=== PATIENT | female | born 1990 | race American Indian/Alaskan Native ===

== ENCOUNTER 2019-11-24 18:49 | Emergency (ER) | payer MEDICAID ==
[2019-11-24] MEDS ORDERED: ACETAMINOPHEN 500 MG TAB PO ONE (22:56)
[2019-11-25 00:25] LABS: Bacteria,Urine 1+ /HPF (Negative); Bilirubin,Urine NEG (Negative); Blood,Urine NEG (Negative); Color,Urine Yellow (Yellow); Protein,Urine <15 mg/dL mg/dL (Negative)
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
[2019-11-25 02:09] VITALS: BP 111/67
== END 2019-11-25 02:09 | disposition home or self-care (01) ==
LOC: ED 18:49
DX: O99.512 Diseases of the respiratory system complicating pregnancy, second trimester (principal); O23.31 Infections of other parts of urinary tract in pregnancy, first trimester; J01.10 Acute frontal sinusitis, unspecified; J20.8 Acute bronchitis due to other specified organisms; J06.9 Acute upper respiratory infection, unspecified; N39.0 Urinary tract infection, site not specified; Z3A.20 20 weeks gestation of pregnancy; Z91.013 Allergy to seafood; Z88.6 Allergy status to analgesic agent
CPT/HCPCS: 81001; 87086; 99283

== ENCOUNTER 2019-12-27 16:49 | Outpatient (CLI) | payer MEDICAID ==
[2019-12-27] MEDS ORDERED: ACETAMINOPHEN 500 MG TAB PO STA (17:34)
[2019-12-27 17:51] LABS: Bacteria,Urine 1+ /HPF (Negative); Bilirubin,Urine NEG (Negative); Blood,Urine SM (Negative); Color,Urine Yellow (Yellow); Mucus,Urine FEW /HPF; Protein,Urine <15 mg/dL mg/dL (Negative); Urobilinogen,Urine < 2.0 mg/dL (<2.0)
[2019-12-27] MEDS ORDERED: LIDOCAINE-MPF (1%) 10 MG/1 ML VIAL 5 ML INFILTRATI ONE (18:38)
[2019-12-27 20:53] VITALS: BP 123/79
== END 2019-12-27 19:24 | disposition home or self-care (01) ==
LOC: TRG 16:49
PROVIDERS: ATTEND Obstetrics & Gynecology
DX: O36.8120 Decreased fetal movements, second trimester, not applicable or unspecified (principal); O47.02 False labor before 37 completed weeks of gestation, second trimester; O26.892 Other specified pregnancy related conditions, second trimester; M54.5 Low back pain; Z3A.24 24 weeks gestation of pregnancy
CPT/HCPCS: 81001; 96372; J0696

== ENCOUNTER 2020-02-08 12:26 | Outpatient (CLI) | payer MEDICAID ==
[2020-02-08] MEDS ORDERED: LACTATED RINGERS 500 ML IV ONE (12:44)
[2020-02-08 12:55] VITALS: BP 121/72
[2020-02-08 13:49] LABS: Bacteria,Urine 1+ /HPF (Negative); Bilirubin,Urine NEG (Negative); Blood,Urine NEG (Negative); Color,Urine Yellow (Yellow); Mucus,Urine FEW /HPF; Protein,Urine <15 mg/dL mg/dL (Negative); Urobilinogen,Urine < 2.0 mg/dL (<2.0)
[2020-02-08] MEDS ORDERED: LACTATED RINGERS 1,000 ML ONE (16:08)
== END 2020-02-08 16:46 | disposition home or self-care (01) ==
LOC: TRG 12:26 → APU 12:27 → TRG 16:46
PROVIDERS: ATTEND Obstetrics & Gynecology
DX: O62.9 Abnormality of forces of labor, unspecified (principal); O21.2 Late vomiting of pregnancy; O99.513 Diseases of the respiratory system complicating pregnancy, third trimester; J45.909 Unspecified asthma, uncomplicated; Z87.891 Personal history of nicotine dependence; Z3A.30 30 weeks gestation of pregnancy
CPT/HCPCS: 36415; 59025; 81001; 82731; 87086; 96365; J0690; J7120; 96360; 96361

== ENCOUNTER 2020-02-22 04:04 | Outpatient (CLI) | payer MEDICAID ==
[2020-02-22 05:55] VITALS: BP 117/64
--- NOTE | 2020-02-22 06:04 | Ultrasound Report ---
Obstetrical ultrasound. HISTORY: Evaluate PHIL. FINDINGS: Limited OB ultrasound was performed. A viable intrauterine has heart tones of 145 bpm. Amniotic fluid index is at the upper limits of normal at 23.7 cm. The largest pocket is quadrant 1 me asuring 6.8 cm. Signer Name: Thomas Norton MD Signed: 02/22/2020 5:59 AM Workstation Name: [email or web address]
== END 2020-02-22 06:22 | disposition home or self-care (01) ==
LOC: TRG 04:04 → APU 04:05 → TRG 06:22
PROVIDERS: ATTEND Obstetrics & Gynecology
DX: O42.92 Full-term premature rupture of membranes, unspecified as to length of time between rupture and onset of labor (principal); Z3A.32 32 weeks gestation of pregnancy
CPT/HCPCS: 76815

== ENCOUNTER 2020-02-29 20:21 | Observation (INO) | payer MEDICAID ==
[2020-02-29] MEDS ORDERED: LACTATED RINGERS 1,000 ML IV ONE ×2 (22:05→23:06)
[2020-02-29 22:50] LABS: Bilirubin,Urine NEG (Negative); Blood,Urine NEG (Negative); Color,Urine Straw (Yellow); Protein,Urine <15 mg/dL mg/dL (Negative); RBC,Urine < 1.0 /HPF (0.0-6.0); Urobilinogen,Urine < 2.0 mg/dL (<2.0)
[2020-02-29] MEDS ORDERED: TERBUTALINE 1 MG/1 ML INJ SUB-Q ONE ×2 (22:54→23:25)
[2020-02-29] MEDS ORDERED: TERBUTALINE 1 MG/1 ML INJ ONE (23:00)
[2020-03-01] MEDS ORDERED: MAGNESIUM SULFATE 4 GM/100 ML BAG IV ONE ×2 (00:45→03:24)
--- NOTE | 2020-03-01 02:52 | Ultrasound Report ---
Limited OB Ultrasound Biophysical profile HISTORY: well being. TECHNIQUE: Grayscale and color imaging performed. COMPARISON: Limited OB ultrasound from 02/22/2020 FINDINGS: There is a single intrauterine gestation with cephalic presentation. PHIL is 20 cm. Placenta is seen anteriorly. Heart rate is 156 bpm. Cervical length is 3.8 cm. Overall EGA is 33 weeks and 5 days by ultrasound, compared to 33 weeks and 6 days clinically. Estimated delivery date is 04/14/2020. Estimated weight is 2220 g. No acute abnormality identified. On biophysical profile, the fetus received a score of 2 out of 2 for breathing, movement, posture/ton e, and PHIL. Total score was 8 out of 8. IMPRESSION: 1. Single viable intrauterine gestation as above. 2. Normal BPP. Signer Name: Claude Monk MD Signed: 03/01/2020 2:48 AM Workstation Name: [id number]
[2020-03-01] MEDS: LACTATED RINGERS 1,000 ML IV SCH ×3 (03:40→19:25)
[2020-03-01] MEDS: MAGNESIUM SULFATE 40GM/1000ML 40 GM/1,000 ML BAG IV SCH (04:16)
[2020-03-01] MEDS: BETAMET ACET/BETAMET NA PH 6 MG/ML INJ 5 ML MDV IM SCH (06:27)
[2020-03-01] MEDS: BUTORPHANOL 2 MG/1 ML INJ IV PRN ×3 (06:30→19:37)
[2020-03-01] MEDS ORDERED: AMPICILLIN/NS 2 GM/100 ML 2 GM/100 ML BAG IV ONE ×2 (07:23→08:19)
--- NOTE | 2020-03-01 08:50 | History and Physical Report ---
History of Present Illness Date of examination: 03/01/20 Date of admission: 02/29/20 22:05 Chief complaint: contractions History of present illness: Pt is a 30 year old DEBORAH 04/13/20 at 33w6d who presents c/o painful contractions since 02/27/20. She was admitted overnight for labor after contractions continued despite two doses of terbutaline. She was started on IV Magnesium Sulfate for tocolysis overnight. Her cervix was closed on admission and is noted to be fingertip this morning. She has had care at [facility] since 16 wks complicated by asthma, chlamydia s/p treatment and negative test of cure, questionable Bipolar disorder, Sickle Cell Trait, and Subclinical Hyperthyroidism. Her GBS status is unknown. Past History Past Medical History: asthma Past Surgical History: appendectomy OFFICE EMPLOYEE History: chlamydia (treated, with negative test of cure ) Family/Genetic History: none Social history: no significant social history - Obstetrical History Expected Date of Delivery: 04/13/20 Actual Gestation: 33 Week(s) 6 Day(s) : 4 Para: 2 Hx # Term Pregnancies: 2 Number of Pregnancies: 0 Spontaneous Abortions: 1 Induced : 0 Number of Living Children: 2 Medications and Allergies Allergies Allergy/AdvReac Type Severity Reaction Status Date / Time hydrocodone Allergy Unknown Verified 11/24/19 19:34 iodine Allergy Unknown Verified 11/24/19 19:34 shellfish derived Allergy Unknown Verified 11/24/19 19:34 Home Medications Medication Instructions Recorded Confirmed Last Taken Type Acetaminophen/Codeine [Tylenol 1 tab PO Q6H PRN #12 tab 11/25/19 Unknown Rx /Codeine # 3 tab] Cetirizine HCl [Zyrtec 10mg tab] 10 mg PO DAILY #30 tablet 11/25/19 Unknown Rx Promethazine [Phenergan] 25 mg PO Q6HR PRN #20 tab 11/25/19 Unknown Rx cephALEXin [Keflex] 500 mg PO Q6HR #40 capsule 11/25/19 Unknown Rx methylPREDNISolone [Medrol 4MG 4 mg PO DAILY #21 tab.ds.pk 11/25/19 Unknown Rx DOSEPAK (21 tabs)] Active Meds: Active Medications Betamethasone Acet/Betameth SodPhos (Celestone Soluspan) 12 mg IM Q24H DAREN Stop: 03/02/20 06:16 Last Admin: 03/01/20 06:27 Dose: 12 mg Documented by: Butorphanol Tartrate (Stadol) 2 mg IV Q2H PRN PRN Reason: Labor Pain Last Admin: 03/01/20 06:30 Dose: 2 mg Documented by: Magnesium Sulfate (Magnesium Sulfate 40gm/1000ml) 40 gm in 1,000 mls @ 50 mls/hr IV DIRECT DAREN Last Admin: 03/01/20 04:16 Dose: 2 gm/hr, 50 mls/hr Documented by: Lactated Ringer's (Lactated Ringers) 1,000 mls @ 125 mls/hr IV DIRECT DAREN Last Admin: 03/01/20 03:40 Dose: 75 mls/hr Documented by: Ampicillin Sodium (Ampicillin/Ns 2 Gm/100 Ml) 2 gm in 100 mls @ 100 mls/hr IV ONCE ONE; Protocol Stop: 03/01/20 09:18 Ampicillin Sodium (Ampicillin/Ns 1 Gm/50 Ml) 1 gm in 50 mls @ 100 mls/hr IV Q4H DAREN; Protocol Review of Systems All systems: negative - Vital Signs Vital signs: Vital Signs Pulse BP 87 118/65 02/29/20 20:51 02/29/20 20:51 Temp Pulse Resp BP Pulse Ox 98.4 F 87 16 106/62 99 03/01/20 03:41 03/01/20 08:24 03/01/20 08:12 03/01/20 08:24 03/01/20 08:12 - Physical Exam Breasts: Positive: deferred Abdomen: Positive: soft (gravid ) Uterus: Positive: enlarged (gravid ) Extremities: Positive: normal - Obstetrical FHR: auscultation normal Uterine Contraction Monitor Mode: External Cervical Dilatation: 0.5 (per RN ) Uterine Contraction Pattern: Irregular Uterine Tone Measurement Phase: Resting Uterine Contraction Intensity: Mild Results Result Diagrams: 03/01/20 10:04 03/01/20 10:04 All other labs normal. Ultrasound: report reviewed Assessment and Plan A: IUP at 33w6d Contractions Asthma Sickle Cell Trait H/o chlamydia treated with negative test of cure GBS unknown P: Admit to antepartum service IV magnesium sulfate for tocolysis Betamethasone course GBS prophylaxis during observation period Monitor maternal and status
[2020-03-01] MEDS ORDERED: DOCUSATE SODIUM 100 MG CAP PO PRN (09:28)
[2020-03-01] MEDS ORDERED: ACETAMINOPHEN 325 MG TAB PO PRN (09:28)
--- NOTE | 2020-03-01 09:30 | Consultation ---
History of Present Illness History of present illness: Spoke with Dr. Conley regarding this patient. Per Dr. Conley, the patient has not made any cervical exchange operator 2 checks. Therefore, the patient does not have labor. Chart reviewed. The patient is receiving BMZ for lung maturity and since the course was initiated, the course should be completed. Given that the patient is not making cervical change, no need for GBS prophylaxis. Magnesium is being used for tocolysis. This should be discontinued when the BMZ is complete. If no further cervical change, as assessed by her doctor, the patient can then be discharged with precautions. Dr. Conley verbalized understanding. MFM is available if any further clinical questions should arise. Per Dr. Conley, no further need to see patient. Past History Past Medical History: asthma - Obstetrical History : 4 Medications and Allergies Allergies Allergy/AdvReac Type Severity Reaction Status Date / Time hydrocodone Allergy Unknown Verified 11/24/19 19:34 iodine Allergy Unknown Verified 11/24/19 19:34 shellfish derived Allergy Unknown Verified 11/24/19 19:34 Home Medications Medication Instructions Recorded Confirmed Last Taken Type Acetaminophen/Codeine [Tylenol 1 tab PO Q6H PRN #12 tab 11/25/19 Unknown Rx /Codeine # 3 tab] Cetirizine HCl [Zyrtec 10mg tab] 10 mg PO DAILY #30 tablet 11/25/19 Unknown Rx Promethazine [Phenergan] 25 mg PO Q6HR PRN #20 tab 11/25/19 Unknown Rx cephALEXin [Keflex] 500 mg PO Q6HR #40 capsule 11/25/19 Unknown Rx methylPREDNISolone [Medrol 4MG 4 mg PO DAILY #21 tab.ds.pk 11/25/19 Unknown Rx DOSEPAK (21 tabs)] Active Meds: Active Medications Betamethasone Acet/Betameth SodPhos (Celestone Soluspan) 12 mg IM Q24H DAREN Stop: 03/02/20 06:16 Last Admin: 03/01/20 06:27 Dose: 12 mg Documented by: Butorphanol Tartrate (Stadol) 2 mg IV Q2H PRN PRN Reason: Labor Pain Last Admin: 03/01/20 06:30 Dose: 2 mg Documented by: Magnesium Sulfate (Magnesium Sulfate 40gm/1000ml) 40 gm in 1,000 mls @ 50 mls/hr IV DIRECT DAREN Last Admin: 03/01/20 04:16 Dose: 2 gm/hr, 50 mls/hr Documented by: Lactated Ringer's (Lactated Ringers) 1,000 mls @ 125 mls/hr IV DIRECT DAREN Last Admin: 03/01/20 03:40 Dose: 75 mls/hr Documented by: Ampicillin Sodium (Ampicillin/Ns 1 Gm/50 Ml) 1 gm in 50 mls @ 100 mls/hr IV Q4H DAREN; Protocol - Vital Signs Vital signs: Vital Signs Pulse BP 87 118/65 02/29/20 20:51 02/29/20 20:51 Temp Pulse Resp BP Pulse Ox 98.4 F 90 16 111/56 100 03/01/20 03:41 03/01/20 09:24 03/01/20 08:12 03/01/20 09:22 03/01/20 09:24 Results All other labs normal.
[2020-03-01] MEDS ORDERED: PRENATAL VIT27-FE FUMARATE-FOLIC ACID VIT TAB PO SCH (10:00)
[2020-03-01 10:41] LABS: Hematocrit 32.6 % (30.3-42.9); Hemoglobin 11.2 gm/dl (10.1-14.3); Mean Corpuscular HGB Conc 34 % (30-34); Mean Corpuscular Volume 82 fl (79-97); Platelet Count 208 K/mm3 (140-440); Red Blood Count 3.98 M/mm3 (3.65-5.03); Red Cell Distribution Width 14.2 % (13.2-15.2)
[2020-03-01 12:16] LABS: Band Neutrophils # (Manual) 0.2 K/mm3; Eosinophils % (Manual) 0 % (0.0-4.3); Monocytes % (Manual) 0 % (0.0-7.3); Platelet Estimate Consistent w Auto; RBC Morphology Normal; Total Cells Counted 100
[2020-03-01] MEDS: AMPICILLIN/NS 1 GM/50 ML 1 GM/50 ML BAG IV SCH ×3 (12:42→22:07)
[2020-03-01 12:55] LABS: Alanine Aminotransferase 7 units/L (7-56); Albumin 3.6 g/dL (3.9-5); BUN/Creatinine Ratio 8; Blood Urea Nitrogen 4 mg/dL (7-17); Calcium 8.2 mg/dL (8.4-10.2); Hemolysis Index 5
--- NOTE | 2020-03-01 19:33 | Event Note ---
Date: 03/01/20 On-call MD contacted regarding RUQ pain. RUQ ultrasound ordered.Also now with 3 episodes of diarrhea. Loperamide ordered. Continue to monitor clinically.
[2020-03-02] MEDS: BUTORPHANOL 2 MG/1 ML INJ IV PRN ×2 (01:22→22:11)
[2020-03-02] MEDS: MAGNESIUM SULFATE 40GM/1000ML 40 GM/1,000 ML BAG IV SCH (01:29)
--- NOTE | 2020-03-02 01:34 | Ultrasound Report ---
LIMITED RUQ ABDOMINAL ULTRASOUND INDICATION: IUP at 33 wks, RUQ pain. COMPARISON: No relevant prior imaging study available. FINDINGS: Pancreas: Visualized portions show no significant abnormality. Abdominal Aorta: Mid to distal aorta is not well-seen on this exam. The proximal aorta is unremarkabl e.. IVC: No significant abnormality. Liver: The liver measures 17.7 cm in length. No significant abnormality. Normal hepatopedal blood fl ow in the main portal vein. Gallbladder: No significant abnormality. Bile ducts: No significant abnormality. Common bile duct measures 1 mm. Right kidney: No significant abnormality visualized.. Free fluid: None. Additional Findings: None. IMPRESSION: 1. Nothing acute. 2. Hepatomegaly. 3. Mid to distal aorta not visualized on this exam. Normal proximal aorta. Signer Name: Claude Monk MD Signed: 03/02/2020 1:29 AM Workstation Name: [id number]
[2020-03-02] MEDS: AMPICILLIN/NS 1 GM/50 ML 1 GM/50 ML BAG IV SCH ×2 (02:18→06:08)
[2020-03-02] MEDS: BETAMET ACET/BETAMET NA PH 6 MG/ML INJ 5 ML MDV IM SCH (06:08)
[2020-03-02] MEDS: LOPERAMIDE 2 MG CAP PO PRN ×2 (08:02→18:57)
--- NOTE | 2020-03-02 09:03 | Progress Note ---
Assessment and Plan A/P IUP 34 weeks contractiosn s/p mag will d/c mag and consider procardia for ctx if needed continue present mgt Subjective - Subjective Date of service: 03/02/20 Principal diagnosis: PT contractions Patient reports: movement normal, contractions, no new complaints, no loss of fluid, no vaginal bleeding Objective - Vital Signs Vital Signs: Vital Signs - 12hr 03/01/20 03/01/20 03/01/20 21:03 21:08 21:13 Temperature Pulse Rate 82 84 78 Respiratory Rate Blood Pressure Blood Pressure [Right] O2 Sat by Pulse 99 98 98 Oximetry 03/01/20 03/01/20 03/01/20 21:18 21:23 21:24 Temperature Pulse Rate 93 H 79 76 Respiratory Rate Blood Pressure 115/70 Blood Pressure [Right] O2 Sat by Pulse 97 99 Oximetry 03/01/20 03/01/20 03/01/20 21:28 21:32 21:33 Temperature Pulse Rate 74 83 81 Respiratory Rate Blood Pressure Blood Pressure [Right] O2 Sat by Pulse 100 92 100 Oximetry 03/01/20 03/01/20 03/01/20 21:38 21:40 21:43 Temperature Pulse Rate 86 89 80 Respiratory Rate Blood Pressure Blood Pressure [Right] O2 Sat by Pulse 99 92 98 Oximetry 03/01/20 03/01/20 03/01/20 21:48 21:49 21:53 Temperature Pulse Rate 82 89 84 Respiratory Rate Blood Pressure Blood Pressure [Right] O2 Sat by Pulse 98 92 98 Oximetry 03/01/20 03/01/20 03/01/20 21:55 21:58 22:03 Temperature Pulse Rate 80 79 82 Respiratory Rate Blood Pressure 114/73 Blood Pressure [Right] O2 Sat by Pulse 97 99 Oximetry 03/01/20 03/01/20 03/01/20 22:08 22:13 22:17 Temperature Pulse Rate 83 84 93 H Respiratory Rate Blood Pressure Blood Pressure [Right] O2 Sat by Pulse 99 98 94 Oximetry 03/01/20 03/01/20 03/01/20 22:18 22:23 22:50 Temperature Pulse Rate 90 107 H Respiratory Rate Blood Pressure Blood Pressure [Right] O2 Sat by Pulse 99 89 93 Oximetry 03/01/20 03/01/20 03/01/20 22:51 22:55 22:56 Temperature Pulse Rate 61 88 87 Respiratory Rate Blood Pressure 144/68 Blood Pressure [Right] O2 Sat by Pulse 84 100 Oximetry 03/01/20 03/01/20 03/01/20 23:01 23:06 23:11 Temperature Pulse Rate 94 H 87 93 H Respiratory Rate Blood Pressure Blood Pressure [Right] O2 Sat by Pulse 98 98 98 Oximetry 03/01/20 03/01/20 03/01/20 23:16 23:21 23:24 Temperature Pulse Rate 90 79 86 Respiratory Rate Blood Pressure 107/58 Blood Pressure [Right] O2 Sat by Pulse 98 99 Oximetry 03/01/20 03/01/20 03/01/20 23:26 23:31 23:36 Temperature Pulse Rate 86 79 78 Respiratory Rate Blood Pressure Blood Pressure [Right] O2 Sat by Pulse 97 97 97 Oximetry 03/01/20 03/01/20 03/01/20 23:41 23:46 23:51 Temperature Pulse Rate 90 77 79 Respiratory Rate Blood Pressure Blood Pressure [Right] O2 Sat by Pulse 99 98 98 Oximetry 03/01/20 03/01/20 03/02/20 23:54 23:56 00:01 Temperature Pulse Rate 76 90 76 Respiratory Rate Blood Pressure 94/50 Blood Pressure [Right] O2 Sat by Pulse 99 99 Oximetry 03/02/20 03/02/20 03/02/20 00:06 00:11 00:16 Temperature Pulse Rate 77 81 86 Respiratory Rate Blood Pressure Blood Pressure [Right] O2 Sat by Pulse 98 97 97 Oximetry 03/02/20 03/02/20 03/02/20 00:21 00:24 00:26 Temperature Pulse Rate 78 78 79 Respiratory Rate Blood Pressure 102/59 Blood Pressure [Right] O2 Sat by Pulse 97 97 Oximetry 03/02/20 03/02/20 03/02/20 00:31 00:36 00:41 Temperature Pulse Rate 78 92 H 83 Respiratory Rate Blood Pressure Blood Pressure [Right] O2 Sat by Pulse 97 98 99 Oximetry 03/02/20 03/02/20 03/02/20 00:46 00:51 00:56 Temperature Pulse Rate 81 81 80 Respiratory Rate Blood Pressure Blood Pressure [Right] O2 Sat by Pulse 99 100 99 Oximetry 03/02/20 03/02/20 03/02/20 01:01 01:06 01:10 Temperature 98.8 F Pulse Rate 83 80 Respiratory 16 Rate Blood Pressure Blood Pressure [Right] O2 Sat by Pulse 100 100 Oximetry 03/02/20 03/02/20 03/02/20 01:11 01:16 01:21 Temperature Pulse Rate 95 H 84 86 Respiratory Rate Blood Pressure Blood Pressure [Right] O2 Sat by Pulse 100 100 99 Oximetry 03/02/20 03/02/20 03/02/20 01:26 01:31 01:36 Temperature Pulse Rate 87 88 84 Respiratory Rate Blood Pressure Blood Pressure [Right] O2 Sat by Pulse 97 97 96 Oximetry 03/02/20 03/02/20 03/02/20 01:41 01:46 01:51 Temperature Pulse Rate 80 80 94 H Respiratory Rate Blood Pressure Blood Pressure [Right] O2 Sat by Pulse 96 95 97 Oximetry 03/02/20 03/02/20 03/02/20 01:54 01:56 02:01 Temperature Pulse Rate 93 H 96 H 93 H Respiratory Rate Blood Pressure 125/68 Blood Pressure [Right] O2 Sat by Pulse 97 97 Oximetry 03/02/20 03/02/20 03/02/20 02:03 02:06 02:09 Temperature Pulse Rate 83 77 84 Respiratory Rate Blood Pressure Blood Pressure [Right] O2 Sat by Pulse 93 96 94 Oximetry 03/02/20 03/02/20 03/02/20 02:11 02:16 02:21 Temperature Pulse Rate 78 85 86 Respiratory Rate Blood Pressure Blood Pressure [Right] O2 Sat by Pulse 95 98 99 Oximetry 03/02/20 03/02/20 03/02/20 02:25 02:26 02:31 Temperature Pulse Rate 86 85 82 Respiratory Rate Blood Pressure 123/69 Blood Pressure [Right] O2 Sat by Pulse 100 100 Oximetry 03/02/20 03/02/20 03/02/20 02:36 02:41 02:46 Temperature Pulse Rate 84 80 85 Respiratory Rate Blood Pressure Blood Pressure [Right] O2 Sat by Pulse 99 97 98 Oximetry 03/02/20 03/02/20 03/02/20 02:51 02:54 02:56 Temperature Pulse Rate 80 78 87 Respiratory Rate Blood Pressure 120/65 Blood Pressure [Right] O2 Sat by Pulse 96 96 Oximetry 03/02/20 03/02/20 03/02/20 03:01 03:06 03:11 Temperature Pulse Rate 83 89 86 Respiratory Rate Blood Pressure Blood Pressure [Right] O2 Sat by Pulse 98 99 97 Oximetry 03/02/20 03/02/20 03/02/20 03:16 03:21 03:24 Temperature Pulse Rate 86 78 77 Respiratory Rate Blood Pressure 111/69 Blood Pressure [Right] O2 Sat by Pulse 98 96 Oximetry 03/02/20 03/02/20 03/02/20 03:26 03:31 03:36 Temperature Pulse Rate 82 78 86 Respiratory Rate Blood Pressure Blood Pressure [Right] O2 Sat by Pulse 96 97 100 Oximetry 03/02/20 03/02/20 03/02/20 03:41 03:46 03:51 Temperature Pulse Rate 78 79 87 Respiratory Rate Blood Pressure Blood Pressure [Right] O2 Sat by Pulse 99 98 97 Oximetry 03/02/20 03/02/20 03/02/20 03:54 03:56 04:01 Temperature Pulse Rate 84 85 77 Respiratory Rate Blood Pressure 121/73 Blood Pressure [Right] O2 Sat by Pulse 96 97 Oximetry 03/02/20 03/02/20 03/02/20 04:06 04:11 04:35 Temperature Pulse Rate 81 89 87 Respiratory Rate Blood Pressure Blood Pressure [Right] O2 Sat by Pulse 98 99 97 Oximetry 03/02/20 03/02/20 03/02/20 04:40 04:45 04:50 Temperature Pulse Rate 92 H 92 H 85 Respiratory Rate Blood Pressure Blood Pressure [Right] O2 Sat by Pulse 97 99 99 Oximetry 03/02/20 03/02/20 03/02/20 04:55 05:00 05:05 Temperature Pulse Rate 94 H 88 87 Respiratory Rate Blood Pressure 111/73 Blood Pressure [Right] O2 Sat by Pulse 99 100 99 Oximetry 03/02/20 03/02/20 03/02/20 05:10 05:45 05:50 Temperature Pulse Rate 86 83 89 Respiratory Rate Blood Pressure Blood Pressure [Right] O2 Sat by Pulse 98 99 98 Oximetry 03/02/20 03/02/20 03/02/20 05:55 05:56 06:00 Temperature Pulse Rate 85 86 84 Respiratory Rate Blood Pressure 131/79 Blood Pressure [Right] O2 Sat by Pulse 99 98 Oximetry 03/02/20 03/02/20 03/02/20 06:05 06:10 06:15 Temperature Pulse Rate 88 94 H 92 H Respiratory Rate Blood Pressure Blood Pressure [Right] O2 Sat by Pulse 98 97 98 Oximetry 03/02/20 03/02/20 03/02/20 06:20 06:24 06:25 Temperature Pulse Rate 89 86 86 Respiratory Rate Blood Pressure 124/67 Blood Pressure [Right] O2 Sat by Pulse 98 98 Oximetry 03/02/20 03/02/20 03/02/20 06:30 06:35 06:54 Temperature Pulse Rate 86 86 75 Respiratory Rate Blood Pressure Blood Pressure [Right] O2 Sat by Pulse 98 99 74 L Oximetry 03/02/20 03/02/20 03/02/20 07:01 07:25 07:33 Temperature Pulse Rate 64 106 H 79 Respiratory Rate Blood Pressure 120/66 Blood Pressure [Right] O2 Sat by Pulse 85 0 L Oximetry 03/02/20 03/02/20 03/02/20 07:34 07:35 07:40 Temperature 99 F Pulse Rate 81 85 80 Respiratory 16 Rate Blood Pressure 116/64 118/64 Blood Pressure 118/64 [Right] O2 Sat by Pulse 98 99 Oximetry 03/02/20 03/02/20 03/02/20 07:43 07:45 07:50 Temperature Pulse Rate 88 80 91 H Respiratory Rate Blood Pressure 120/74 Blood Pressure [Right] O2 Sat by Pulse 98 98 Oximetry 03/02/20 03/02/20 07:55 08:00 Temperature Pulse Rate 83 100 H Respiratory Rate Blood Pressure Blood Pressure [Right] O2 Sat by Pulse 99 100 Oximetry - Exam Breasts: normal Cardiovascular: Regular rate, Normal S1 Lungs: Clear to auscultation, Normal air movement Abdomen: Present: normal appearance, soft, normal bowel sounds. Absent: distention, tenderness, guarding Uterus: Present: normal, firm, fundal height above umbilicus. Absent: bogginess, tenderness FHR: category 1 Cervical Dilatation: 1 Cervical Effacement Percentage: 30 station: -4 Uterine Contraction Pattern: Irregular Uterine Tone Measurement Phase: Contraction Uterine Contraction Intensity: Mild Extremities: normal Deep Tendon Reflex Grade: Normal +2 - Labs Labs: Abnormal Labs 03/01/20 03/01/20 03/01/20 10:04 10:04 10:04 WBC 12.2 H Seg Neuts % (Manual) 93.0 H Lymphocytes % (Manual) 4.0 L Seg Neutrophils # Man 11.3 H Lymphocytes # (Manual) 0.5 L Carbon Dioxide 20 L BUN 4 L Creatinine 0.5 L Glucose 188 H Calcium 8.2 L Magnesium 4.30 H Albumin 3.6 L 03/01/20 03/01/20 03/02/20 15:07 23:41 04:14 WBC Seg Neuts % (Manual) Lymphocytes % (Manual) Seg Neutrophils # Man Lymphocytes # (Manual) Carbon Dioxide BUN Creatinine Glucose Calcium Magnesium 4.80 H 4.20 H 4.00 H Albumin Laboratory Results - last 24 hr 03/01/20 03/01/20 03/01/20 10:04 10:04 10:04 WBC 12.2 H RBC 3.98 Hgb 11.2 Hct 32.6 MCV 82 MCH 28 MCHC 34 RDW 14.2 Plt Count 208 Add Manual Diff Complete Total Counted 100 Seg Neutrophils % Ad Terminal Makeup Operator Seg Neuts % (Manual) 93.0 H Band Neutrophils % 2.0 Lymphocytes % (Manual) 4.0 L Reactive Lymphs % (Man) 0 Monocytes % (Manual) 0 Eosinophils % (Manual) 0 Basophils % (Manual) 1.0 Metamyelocytes % 0 Myelocytes % 0 Promyelocytes % 0 Blast Cells % 0 Nucleated RBC % Not Reportable Seg Neutrophils # Man 11.3 H Band Neutrophils # 0.2 Lymphocytes # (Manual) 0.5 L Abs React Lymphs (Man) 0.0 Monocytes # (Manual) 0.0 Eosinophils # (Manual) 0.0 Basophils # (Manual) 0.1 Metamyelocytes # 0.0 Myelocytes # 0.0 Promyelocytes # 0.0 Blast Cells # 0.0 WBC Morphology Not Reportable Hypersegmented Neuts Not Reportable Hyposegmented Neuts Not Reportable Hypogranular Neuts Not Reportable Smudge Cells Not Reportable Toxic Granulation Not Reportable Toxic Vacuolation Not Reportable Dohle Bodies Not Reportable Pelger-Huet Anomaly Not Reportable Lazaro Rods Not Reportable Platelet Estimate Consistent w auto Clumped Platelets Not Reportable Plt Clumps, EDTA Not Reportable Large Platelets Not Reportable Giant Platelets Not Reportable Platelet Satelliting Not Reportable Plt Morphology Comment Not Reportable RBC Morphology Normal Dimorphic RBCs Not Reportable Polychromasia Not Reportable Hypochromasia Not Reportable Poikilocytosis Not Reportable Anisocytosis Not Reportable Microcytosis Not Reportable Macrocytosis Not Reportable Spherocytes Not Reportable Pappenheimer Bodies Not Reportable Sickle Cells Not Reportable Target Cells Not Reportable Tear Drop Cells Not Reportable Ovalocytes Not Reportable Helmet Cells Not Reportable [place] Bodies Not Reportable [place] Rings Not Reportable Genesis Cells Not Reportable Bite Cells Not Reportable Crenated Cell Not Reportable Elliptocytes Not Reportable Acanthocytes (Spur) Not Reportable Rouleaux Not Reportable Hemoglobin C Crystals Not Reportable Schistocytes Not Reportable Malaria parasites Not Reportable Jesu Bodies Not Reportable Hem Pathologist Commnt No Sodium Potassium Chloride Carbon Dioxide Anion Gap BUN Creatinine Estimated GFR BUN/Creatinine Ratio Glucose Calcium Magnesium 4.30 H Total Bilirubin AST ALT Alkaline Phosphatase Total Protein Albumin Albumin/Globulin Ratio Blood Type B POSITIVE Antibody Screen Negative 03/01/20 03/01/20 03/01/20 10:04 15:07 23:41 WBC RBC Hgb Hct MCV MCH MCHC RDW Plt Count Add Manual Diff Total Counted Seg Neutrophils % Seg Neuts % (Manual) Band Neutrophils % Lymphocytes % (Manual) Reactive Lymphs % (Man) Monocytes % (Manual) Eosinophils % (Manual) Basophils % (Manual) Metamyelocytes % Myelocytes % Promyelocytes % Blast Cells % Nucleated RBC % Seg Neutrophils # Man Band Neutrophils # Lymphocytes # (Manual) Abs React Lymphs (Man) Monocytes # (Manual) Eosinophils # (Manual) Basophils # (Manual) Metamyelocytes # Myelocytes # Promyelocytes # Blast Cells # WBC Morphology Hypersegmented Neuts Hyposegmented Neuts Hypogranular Neuts Smudge Cells Toxic Granulation Toxic Vacuolation Dohle Bodies Pelger-Huet Anomaly Lazaro Rods Platelet Estimate Clumped Platelets Plt Clumps, EDTA Large Platelets Giant Platelets Platelet Satelliting Plt Morphology Comment RBC Morphology Dimorphic RBCs Polychromasia Hypochromasia Poikilocytosis Anisocytosis Microcytosis Macrocytosis Spherocytes Pappenheimer Bodies Sickle Cells Target Cells Tear Drop Cells Ovalocytes Helmet Cells [place] Bodies [place] Rings Genesis Cells Bite Cells Crenated Cell Elliptocytes Acanthocytes (Spur) Rouleaux Hemoglobin C Crystals Schistocytes Malaria parasites Jesu Bodies Hem Pathologist Commnt Sodium 137 Potassium 3.8 Chloride 102.1 Carbon Dioxide 20 L Anion Gap 19 BUN 4 L Creatinine 0.5 L Estimated GFR > 60 BUN/Creatinine Ratio 8 Glucose 188 H Calcium 8.2 L Magnesium 4.80 H 4.20 H Total Bilirubin 0.20 AST 15 ALT 7 Alkaline Phosphatase 129 Total Protein 6.6 Albumin 3.6 L Albumin/Globulin Ratio 1.2 Blood Type Antibody Screen 03/02/20 04:14 WBC RBC Hgb Hct MCV MCH MCHC RDW Plt Count Add Manual Diff Total Counted Seg Neutrophils % Seg Neuts % (Manual) Band Neutrophils % Lymphocytes % (Manual) Reactive Lymphs % (Man) Monocytes % (Manual) Eosinophils % (Manual) Basophils % (Manual) Metamyelocytes % Myelocytes % Promyelocytes % Blast Cells % Nucleated RBC % Seg Neutrophils # Man Band Neutrophils # Lymphocytes # (Manual) Abs React Lymphs (Man) Monocytes # (Manual) Eosinophils # (Manual) Basophils # (Manual) Metamyelocytes # Myelocytes # Promyelocytes # Blast Cells # WBC Morphology Hypersegmented Neuts Hyposegmented Neuts Hypogranular Neuts Smudge Cells Toxic Granulation Toxic Vacuolation Dohle Bodies Pelger-Huet Anomaly Lazaro Rods Platelet Estimate Clumped Platelets Plt Clumps, EDTA Large Platelets Giant Platelets Platelet Satelliting Plt Morphology Comment RBC Morphology Dimorphic RBCs Polychromasia Hypochromasia Poikilocytosis Anisocytosis Microcytosis Macrocytosis Spherocytes Pappenheimer Bodies Sickle Cells Target Cells Tear Drop Cells Ovalocytes Helmet Cells [place] Bodies [place] Rings Genesis Cells Bite Cells Crenated Cell Elliptocytes Acanthocytes (Spur) Rouleaux Hemoglobin C Crystals Schistocytes Malaria parasites Jesu Bodies Hem Pathologist Commnt Sodium Potassium Chloride Carbon Dioxide Anion Gap BUN Creatinine Estimated GFR BUN/Creatinine Ratio Glucose Calcium Magnesium 4.00 H Total Bilirubin AST ALT Alkaline Phosphatase Total Protein Albumin Albumin/Globulin Ratio Blood Type Antibody Screen
[2020-03-02] MEDS ORDERED: FLUCONAZOLE 100 MG TAB PO SCH (10:00)
--- NOTE | 2020-03-02 16:41 | Event Note ---
Date: 03/02/20 Patient has been resting today with still c/o contractions. Her cervix recheckd. She continues to c/o diarrhea ( recently started on leperamide) We will evaluate her contractions. Awaiting CBC for trend recently 12 ( left shift) Plan to d/c in am with f/u on Friday
[2020-03-02 17:58] LABS: Hematocrit 30.4 % (30.3-42.9); Hemoglobin 10.5 gm/dl (10.1-14.3); Lymphocytes # (Auto) 1.1 K/mm3 (1.2-5.4); Lymphocytes % (Auto) 9.2 % (13.4-35.0); Mean Corpuscular HGB Conc 35 % (30-34); Mean Corpuscular Volume 82 fl (79-97); Monocytes # (Auto) 0.7 K/mm3 (0.0-0.8); Monocytes % (Auto) 5.7 % (0.0-7.3); Platelet Count 211 K/mm3 (140-440); Red Blood Count 3.69 M/mm3 (3.65-5.03); Red Cell Distribution Width 14.1 % (13.2-15.2)
[2020-03-03 07:46] VITALS: BP 108/63
--- NOTE | 2020-03-03 08:42 | Progress Note ---
Assessment and Plan A/P IUP 34+ weeks contractions-resolved s/p mag s/p niccu consult s/p mfm consult with recommnedations of d/c home will d/c home with f/u with OB on Friday ( 3 days) strict precautions Subjective - Subjective Date of service: 03/03/20 Principal diagnosis: PT contractions Patient reports: movement normal, contractions (less than 3 ctx in 1hr ), no new complaints, no loss of fluid, no vaginal bleeding Objective - Vital Signs Vital Signs: Vital Signs - 12hr 03/02/20 03/02/20 03/03/20 22:11 23:24 07:29 Pulse Rate 76 83 Respiratory 18 Rate Blood Pressure 102/56 O2 Sat by Pulse 97 Oximetry 03/03/20 03/03/20 03/03/20 07:34 07:39 07:44 Pulse Rate 81 81 83 Respiratory Rate Blood Pressure O2 Sat by Pulse 98 97 97 Oximetry 03/03/20 03/03/20 07:45 07:49 Pulse Rate 75 72 Respiratory Rate Blood Pressure 108/63 O2 Sat by Pulse 99 Oximetry - Exam Breasts: normal Cardiovascular: Regular rate, Normal S1 Lungs: Clear to auscultation, Normal air movement Abdomen: Present: normal appearance, soft, normal bowel sounds. Absent: distention, tenderness, guarding Uterus: Present: normal, firm, fundal height below umbilicus. Absent: bogginess, tenderness FHR: category 1 Cervical Dilatation: 1 - Labs Labs: Abnormal Labs 03/01/20 03/01/20 03/01/20 10:04 10:04 10:04 WBC 12.2 H MCHC Lymph % (Auto) Lymph # Seg Neutrophils % Seg Neuts % (Manual) 93.0 H Lymphocytes % (Manual) 4.0 L Seg Neutrophils # Seg Neutrophils # Man 11.3 H Lymphocytes # (Manual) 0.5 L Carbon Dioxide 20 L BUN 4 L Creatinine 0.5 L Glucose 188 H Calcium 8.2 L Magnesium 4.30 H Albumin 3.6 L 03/01/20 03/01/20 03/02/20 15:07 23:41 04:14 WBC MCHC Lymph % (Auto) Lymph # Seg Neutrophils % Seg Neuts % (Manual) Lymphocytes % (Manual) Seg Neutrophils # Seg Neutrophils # Man Lymphocytes # (Manual) Carbon Dioxide BUN Creatinine Glucose Calcium Magnesium 4.80 H 4.20 H 4.00 H Albumin 03/02/20 16:21 WBC 11.9 H MCHC 35 H Lymph % (Auto) 9.2 L Lymph # 1.1 L Seg Neutrophils % 85.1 H Seg Neuts % (Manual) Lymphocytes % (Manual) Seg Neutrophils # 10.1 H Seg Neutrophils # Man Lymphocytes # (Manual) Carbon Dioxide BUN Creatinine Glucose Calcium Magnesium Albumin Laboratory Results - last 24 hr 03/02/20 16:21 WBC 11.9 H RBC 3.69 Hgb 10.5 Hct 30.4 MCV 82 MCH 28 MCHC 35 H RDW 14.1 Plt Count 211 Lymph % (Auto) 9.2 L [place] % (Auto) 5.7 Eos % (Auto) 0.0 Baso % (Auto) 0.0 Lymph # 1.1 L [place] # 0.7 Eos # 0.0 Baso # 0.0 Seg Neutrophils % 85.1 H Seg Neutrophils # 10.1 H
--- NOTE | 2020-03-03 08:45 | Discharge Summary ---
Providers - Providers Date of Admission: 03/01/20 09:28 Date of discharge: 03/03/20 Attending physician: MJ SRINIVASAN MD Primary care physician: MJ SRINIVASAN MD Hospitalization Reason for admission: other ( labor ) Hospital course: patient admitted for contractions started on mag for contractions. FFN neg. seen by niccu and MFM. she stayed for 3 days without any cervical change. Initial c/o diarhea resolving. patient d/c home with f/u with OB and MFM Condition at discharge: Good Disposition: DC-01 TO HOME OR SELFCARE Plan - Provider Discharge Summary Activity: routine, no sex for 6 weeks, no strenuous exercise Diet: routine Instructions: routine Additional instructions: [] Smoking cessation referral if applicable(refer to patient education folder for contact #) [] Refer to [facility]'s [facility] Booklet Call your doctor immediately for: * Fever > 100.5 * Heavy vaginal bleeding ( >1 pad per hour) * Severe persistent headache * Shortness of breath * Reddened, hot, painful area to leg or breast * Drainage or odor from incision. * Keep incision clean and dry at all times and follow doctor's instructions regarding bathing/showering - Follow up plan Follow up: MJ SRINIVASAN MD [Primary Care Provider] - 3 Days
--- NOTE | 2020-03-03 10:10 | Ultrasound Report ---
ULTRASOUND OBSTETRIC LIMITED ULTRASOUND BIOPHYSICAL PROFILE INDICATION / CLINICAL INFORMATION: labor. COMPARISON: OB ultrasound from 03/01/2020. FINDINGS: BREATHING MOVEMENT = 2 GROSS BODY MOVEMENT = 2 TONE = 2 QUALITATIVE AMNIOTIC FLUID VOLUME = 2 TOTAL BIOPHYSICAL SCORE = 8/8 AMNIOTIC FLUID INDEX (cm) = 20.3 PRESENTATION: Cephalic. HEART RATE (beats per minute): 125 ADDITIONAL FINDINGS: None. IMPRESSION: 1. Biophysical Score = 8/8 2. No acute sonographic abnormality of the pelvis. Signer Name: Zeb Swan MD Signed: 03/03/2020 10:05 AM Workstation Name: [id number]
== END 2020-03-03 10:50 | disposition home or self-care (01) ==
LOC: TRG 20:21 → APU 20:44 → LD 22:05 → UNDOADMOB 22:05 → INTOOBSV 22:05 → TRG 22:05 → OBSVTOIN 22:05 → LD 03-01 09:28 → OBSVTOIN 03-01 09:28 → INTOOBSV 03-01 09:28 → OBSVTOIN 03-03 08:52
PROVIDERS: ADMIT Obstetrics & Gynecology; ATTEND Obstetrics & Gynecology
DX: O62.9 Abnormality of forces of labor, unspecified (principal); O26.893 Other specified pregnancy related conditions, third trimester; R19.7 Diarrhea, unspecified; O99.513 Diseases of the respiratory system complicating pregnancy, third trimester; J45.909 Unspecified asthma, uncomplicated; O99.013 Anemia complicating pregnancy, third trimester; D57.1 Sickle-cell disease without crisis; O99.283 Endocrine, nutritional and metabolic diseases complicating pregnancy, third trimester; E02 Subclinical iodine-deficiency hypothyroidism; Z86.19 Personal history of other infectious and parasitic diseases; Z90.49 Acquired absence of other specified parts of digestive tract; Z79.899 Other long term (current) drug therapy; Z88.5 Allergy status to narcotic agent; Z91.013 Allergy to seafood; Z91.048 Other nonmedicinal substance allergy status; Z3A.33 33 weeks gestation of pregnancy
CPT/HCPCS: 36415; 76705; 76815; 76816; 76819; 80053; 81001; 82731; 83735; 85007; 85025; 86850; 86900; 86901; 96361; 96365; 96366; 96368; 96372; 96375; 96376; G0378; J0290; J0595; J0702; J3105; J3475; J7120; 59025

== ENCOUNTER 2020-03-05 05:15 | Outpatient (CLI) | payer MEDICAID ==
[2020-03-05 05:46] VITALS: BP 133/77
[2020-03-05] MEDS ORDERED: LACTATED RINGERS 500 ML IV ONE (06:00)
[2020-03-05] MEDS ORDERED: LACTATED RINGERS 1,000 ML ONE (06:33)
[2020-03-05 07:11] LABS: Amphetamine Screen,Urine PRESUMPTIVE NEGATIVE; Benzodiazepines Screen,Urine PRESUMPTIVE NEGATIVE; Cocaine Screen,Urine PRESUMPTIVE NEGATIVE; Methadone Screen,Urine PRESUMPTIVE NEGATIVE; Opiate Screen,Urine PRESUMPTIVE NEGATIVE
[2020-03-05 07:24] LABS: Cannabinoid Screen,Urine PRESUMPTIVE POSITIVE
[2020-03-05 07:51] LABS: Basophils % (Auto) 0.3 % (0.0-1.8); Eosinophils # (Auto) 0.1 K/mm3 (0.0-0.4); Eosinophils % (Auto) 0.7 % (0.0-4.3); Hematocrit 29.8 % (30.3-42.9); Hemoglobin 10.3 gm/dl (10.1-14.3); Lymphocytes # (Auto) 2.4 K/mm3 (1.2-5.4); Lymphocytes % (Auto) 24.9 % (13.4-35.0); Mean Corpuscular HGB Conc 34 % (30-34); Mean Corpuscular Volume 82 fl (79-97); Monocytes # (Auto) 0.8 K/mm3 (0.0-0.8); Monocytes % (Auto) 8.1 % (0.0-7.3); Platelet Count 210 K/mm3 (140-440); Red Blood Count 3.64 M/mm3 (3.65-5.03); Red Cell Distribution Width 14.2 % (13.2-15.2)
== END 2020-03-05 09:28 | disposition home or self-care (01) ==
LOC: TRG 05:15 → APU 05:17 → TRG 09:28
PROVIDERS: ATTEND Obstetrics & Gynecology
DX: O62.9 Abnormality of forces of labor, unspecified (principal); O99.513 Diseases of the respiratory system complicating pregnancy, third trimester; J45.909 Unspecified asthma, uncomplicated; Z87.891 Personal history of nicotine dependence; Z3A.34 34 weeks gestation of pregnancy
CPT/HCPCS: 36415; 59025; 80307; 85025; 86140; 96360; J7120

== ENCOUNTER 2020-03-25 14:55 | Outpatient (CLI) | payer MEDICAID ==
[2020-03-25 16:14] VITALS: BP 102/57
== END 2020-03-25 16:21 | disposition home or self-care (01) ==
LOC: APU 14:55 → TRG 14:55
PROVIDERS: ATTEND Obstetrics & Gynecology
DX: O26.893 Other specified pregnancy related conditions, third trimester (principal); R22.40 Localized swelling, mass and lump, unspecified lower limb; Z3A.37 37 weeks gestation of pregnancy
CPT/HCPCS: 59025

== ENCOUNTER 2020-03-26 16:24 | Observation (INO) | payer MEDICAID ==
[2020-03-27 01:21] LABS: Hemoglobin 10.4 gm/dl (10.1-14.3); Mean Corpuscular HGB Conc 34 % (30-34); Mean Corpuscular Volume 81 fl (79-97); Platelet Count 174 K/mm3 (140-440); Red Cell Distribution Width 14.5 % (13.2-15.2)
[2020-03-27 07:14] VITALS: BP 125/71
== END 2020-03-27 11:18 | disposition home or self-care (01) ==
LOC: TRG 16:24 → LD 16:25 → TRG 16:43 → LD 16:43 → TRG 03-27 11:18
PROVIDERS: ADMIT Obstetrics & Gynecology; ATTEND Obstetrics & Gynecology
DX: O26.893 Other specified pregnancy related conditions, third trimester (principal); R60.0 Localized edema; O62.9 Abnormality of forces of labor, unspecified; O99.343 Other mental disorders complicating pregnancy, third trimester; F31.9 Bipolar disorder, unspecified; O99.513 Diseases of the respiratory system complicating pregnancy, third trimester; J45.909 Unspecified asthma, uncomplicated; O99.013 Anemia complicating pregnancy, third trimester; D57.3 Sickle-cell trait; Z87.828 Personal history of other (healed) physical injury and trauma; Z90.49 Acquired absence of other specified parts of digestive tract; Z79.899 Other long term (current) drug therapy; Z91.048 Other nonmedicinal substance allergy status; Z91.013 Allergy to seafood; Z88.8 Allergy status to other drugs, medicaments and biological substances; Z3A.37 37 weeks gestation of pregnancy
CPT/HCPCS: 36415; 76816; 76819; 84439; 84443; 85027; 86592; 86850; 86900; 86901; 93970; 96361; 96365; 96366; 96375; 96376; G0378; J0290; J0595; J7120; 96360; 96367

== ENCOUNTER 2020-04-12 07:44 | Outpatient (CLI) | payer MEDICAID ==
[2020-04-12 08:37] VITALS: BP 112/70
== END 2020-04-12 10:26 | disposition home or self-care (01) ==
LOC: TRG 07:44 → APU 07:44 → TRG 10:26
PROVIDERS: ATTEND Obstetrics & Gynecology
DX: O47.1 False labor at or after 37 completed weeks of gestation (principal); Z3A.39 39 weeks gestation of pregnancy
CPT/HCPCS: 59025